=== PATIENT | female | born 1945 ===

== ENCOUNTER → 2019-06-19 | Outpatient (CLI) | payer MEDICARE ==
--- NOTE | 2019-06-19 16:49 | RAD ---
Chest CT without contrast Clinical indications: Lung nodule. Follow-up study. COMPARISON: July 15, 2017. TECHNIQUE: Noncontrast helical CT scanning of the chest was performed. Without IV contrast, the sensitivity to detect organ pathology is decreased. PQRS compliance Statement One or more of the following individualized dose reduction techniques were utilized for this study: 1. Automated exposure control 2. Adjustment of the mA and/or kV according to patient size 3. Use of iterative reconstruction technique FINDINGS: No enlarged thoracic lymphadenopathy is evident. Calcified lymph nodes are seen within the mediastinum and right hilum due to old atheromatous disease. No focal aneurysmal dilatation of the thoracic aorta is seen. The heart size is normal and no pericardial effusion is seen. Biapical scarring is seen which is unchanged. There is a nodular scar within the posterior aspect of the right upper lobe seen on series 8 and image 112 which measures 6 mm. This nodular component was not seen previously in the region of linear scar. Therefore, this is a new finding. There is a lung nodule within the lateral aspect of the right lower lobe seen on image 220. It measured 3 mm and is stable. Subpleural nodule within the posterior left lower lobe seen on image 205 is subcentimeter in size and is stable. On image 65, there is a 5 mm lung nodule within the anterior medial aspect of the right upper lobe. This is stable. No lung mass or lung consolidation is evident. No pneumothorax or pleural effusion is seen. The proximal bronchial tree is patent. No lytic process is evident. No adrenal mass is evident. IMPRESSION: New lung nodule within the right upper lobe which may represent a nodular scar. Recommend continued chest CT follow-up in 6-12 months as per Fleischner guidelines. Electronically signed by: Jeff Beard MD (06/19/2019 4:47 PM) [place] [id number]
== END | disposition home or self-care (01) ==
LOC: CT 08:47
PROVIDERS: ATTEND Internal Medicine Pulmonary Disease
DX: R91.8 Other nonspecific abnormal finding of lung field (principal)
CPT/HCPCS: 71250

== ENCOUNTER 2020-03-09 13:42 | Inpatient (IN) | payer MEDICARE ==
[~2020-03-09] VITALS: Ht 167.6 cm; Wt 60.9 kg
[~2020-03-09 13:42] MED LIST: ALBUTEROL SULFATE 2.5 MG/3 ML NEBU. NEB PRN
[2020-03-09] MEDS ORDERED: ONDANSETRON PF 4 MG/2 ML VIAL. IVP PRN (15:00)
[2020-03-09] MEDS: MORPHINE SULFATE 4 MG/ML VIAL. IV PRN ×2 (15:30→20:05)
[2020-03-09] MEDS: IV NORMAL SALINE 1000ML BAG 1,000 ML IV SCH ×2 (15:31→20:28)
[2020-03-09 16:45] VITALS: BP 136/60
[2020-03-09 19:00] VITALS: BP 157/75
[2020-03-09] MEDS ORDERED: LISI-334 PO (19:43)
[2020-03-09] MEDS ORDERED: MOME13HF IH (19:43)
[2020-03-09] MEDS ORDERED: LATA2.5D3 OS (19:43)
[2020-03-09] MEDS ORDERED: [UNRECOGNIZED DRUG - REMARK] OS (19:43)
[2020-03-09] MEDS ORDERED: DICL100G54 TP (19:43)
[2020-03-09] MEDS ORDERED: CELE100C PO (19:43)
[2020-03-09] MEDS ORDERED: MULT-460 PO (19:47)
[2020-03-09] MEDS ORDERED: CALC-31 PO (19:47)
[2020-03-09] MEDS ORDERED: ASPI-886 PO (19:47)
[2020-03-09] MEDS ORDERED: ACET325T9 PO (19:47)
[2020-03-09] MEDS ORDERED: POLY15DR27 EACHEYE (19:47)
[2020-03-09] MEDS ORDERED: POLYVINYL ALCOHOL 1.4% OPHTH SOLUTION 15ML BOTTLE. OS PRN (20:00)
[2020-03-09] MEDS ORDERED: ACETAMINOPHEN 325 MG TABLET. PO PRN ×2 (20:00)
[2020-03-09] MEDS ORDERED: BRIN10DR OS (20:02)
[2020-03-09] MEDS: DICLOFENAC SODIUM 1% TOPICAL GEL 100GM TUBE. TP SCH (20:46)
[2020-03-09] MEDS: BRIMONIDINE 0.2% OPHTH SOLUTION 5ML BOTTLE. OS SCH (20:46)
[2020-03-09] MEDS ORDERED: LATANOPROST 0.005% OPHTH SOLUTION 2.5ML BOTTLE. OS SCH (21:00)
[2020-03-09 23:00] VITALS: BP 100/47
[2020-03-10] VITALS (8 sets, daily range): BP systolic 112–160; BP diastolic 50–77
[2020-03-10 04:54] LABS: BASO % 0 % (0-3); EOS % 1 % (0-3); HEMATOCRIT 32.5 % (36.0-47.0); HEMOGLOBIN 11.3 g/dL (12.0-15.5); LYMPH # 0.9 x10^3/uL (1.0-4.8); LYMPH % 12 % (24-48); MEAN CORPUSCULAR HEMOGLOBIN 33 pg (25-35); MEAN CORPUSCULAR HGB CONC 35 g/dL (31-37); MEAN CORPUSCULAR VOLUME 95 fL (79-100); MONO # 0.7 x10^3/uL (0.0-1.1); MONO % 9 % (0-9); NEUT % 78 % (31-73); PLATELET COUNT 238 x10^3/uL (140-400); RED BLOOD COUNT 3.43 x10^6/uL (3.50-5.40); RED CELL DISTRIBUTION WIDTH 12.9 % (11.5-14.5); WHITE BLOOD COUNT 7.7 x10^3/uL (4.0-11.0)
[2020-03-10 05:11] LABS: ALBUMIN 3.1 g/dL (3.4-5.0); ALBUMIN/GLOBULIN RATIO 1.2 (1.0-1.7); CALCIUM 7.7 mg/dL (8.5-10.1); CREATININE 0.7 mg/dL (0.6-1.0); POTASSIUM 4.1 mmol/L (3.5-5.1); TOTAL BILIRUBIN 0.5 mg/dL (0.2-1.0); TOTAL PROTEIN 5.7 g/dL (6.4-8.2)
[2020-03-10] MEDS: MORPHINE SULFATE 4 MG/ML VIAL. IV PRN ×2 (05:43→10:10)
[2020-03-10] MEDS: IV NORMAL SALINE 1000ML BAG 1,000 ML IV SCH (06:08)
[2020-03-10] MEDS: BRIMONIDINE 0.2% OPHTH SOLUTION 5ML BOTTLE. OS SCH ×2 (08:00→20:51)
[2020-03-10] MEDS ORDERED: BUDESONIDE 0.5 MG/2 ML NEBU. NEB SCH (08:00)
[2020-03-10] MEDS: CALCIUM CARB/VIT D3 500/200 TABLET. PO SCH (08:00)
[2020-03-10] MEDS ORDERED: ALBUTEROL SULFATE 2.5 MG/3 ML NEBU. NEB SCH (08:00)
[2020-03-10] MEDS ORDERED: IV RINGERS,LACTATED 1000ML 1,000 ML IV SCH (08:01)
[2020-03-10] MEDS: DICLOFENAC SODIUM 1% TOPICAL GEL 100GM TUBE. TP SCH ×3 (08:01→20:52)
[2020-03-10] MEDS: MULTIVITAMIN with MINERAL TABLET. PO SCH (08:01)
[2020-03-10] MEDS ORDERED: PROCHLORPERAZINE 10 MG/2 ML VIAL. IV PRN (08:15)
[2020-03-10] MEDS ORDERED: MORPHINE SULFATE 2 MG/ML VIAL. IV PRN (08:15)
[2020-03-10] MEDS ORDERED: HYDROmorphone 2 MG/ML VIAL IV PRN (08:15)
[2020-03-10] MEDS ORDERED: fentaNYL PF VIAL 100 MCG/2 ML VIAL IV PRN (08:15)
[2020-03-10] MEDS ORDERED: LIDOCAINE 1% PF 2 ML VIAL. ID PRN (08:15)
[2020-03-10] MEDS ORDERED: ROCURONIUM 50 MG/5 ML VIAL. ONE (08:19)
[2020-03-10] MEDS ORDERED: LIDOCAINE 2% PF 5 ML VIAL. ONE (08:19)
[2020-03-10] MEDS ORDERED: PROPOFOL 10 MG/ML (20ML) VIAL. IV ONE (08:19)
[2020-03-10] MEDS ORDERED: CELECOXIB 100 MG CAPSULE. PO SCH (09:00)
[2020-03-10] MEDS ORDERED: LISINOPRIL 20 MG TABLET PO SCH (09:00)
--- NOTE | 2020-03-10 09:06 | NUR ---
SW following. Discussed with RN, pt from home with . Pt having surgery today - PT/OT to work with pt after surgery. SW will continue to follow.
--- NOTE | 2020-03-10 09:27 | PN ---
DATE: 03/10/2020 SUBJECTIVE: The patient is a 74-year-old female patient who was seen yesterday at [facility], was diagnosed with right intertrochanteric fracture of the right hip, was transferred to [facility]. We did consult Dr. Grant for definitive surgical treatment. When I saw her this morning, she looked well and was clearly in no apparent respiratory distress, questioned her about pain in her right hip, denied any other complaint. PHYSICAL EXAMINATION: GENERAL: On examining her, she looked pale, somewhat cachectic, but no jaundice, cyanosis or thyromegaly. No jugular venous distention. No limb edema. VITAL SIGNS: Her heart rate was 75, blood pressure was 142/59, temperature was 98.5, respiratory rate was 18, and oxygen saturation was 98%. The rest of clinical examination is stable. Her intake and output were incompletely recorded. LABORATORY DATA: Her lab work this morning showed a white cell count of 7700, hemoglobin 11, hematocrit 33, MCV 95, and platelet count 238,000. Her chemistry showed her serum sodium slightly up at 133, potassium 4.1, chloride 99, bicarbonate 26, anion gap of 8, BUN 11, creatinine 0.7, estimated GFR was 82 mL per minute. Her glucose 110, calcium was 7.7. Total bilirubin, AST, ALT, and alkaline phosphatase were normal. Total protein 5.7, albumin 3.1. Her prothrombin time and INR were within normal range. ASSESSMENT AND PLAN: In summary, this is a 74-year-old female patient who fell sustaining right intertrochanteric hip fracture. She was kept n.p.o. from midnight last night and continued IV fluid, IV pain medication, antiemetic and we did consult the orthopedic surgeon. She has also hypertension, was started recently on lisinopril. Whether this has contributed to her fall, I am not really sure and glaucoma, for which she is on eyedrops. She has a history of one episode of seizures in 2012. It never appeared back again. She has probably emphysema as well as pulmonary fibrosis and pulmonary nodules followed by Dr. Cook. I would consult Dr. Cook for preoperative evaluation and for postoperative followup. ROSENDO HALL MD DR: MAY/koffi JOB#: [id number] / [id number]
--- NOTE | 2020-03-10 09:35 | HP ---
ADMIT DATE: 03/09/2020 HISTORY OF PRESENT ILLNESS: The patient is a 74-year-old female patient who presented to the Emergency Room of [facility] after a fall at home. She states she was standing in her kitchen. She began getting dizzy something she described as lightheadedness and fell to the floor. She did not hit her head and is uncertain if she lost consciousness. She came complaining of severe right hip pain and thigh area. She is holding her head in a position of comfort with the flexion of her knees flexed as well. She denies any back pain. Denied any neck pain, chest pain, palpitation prior to the incident. Denied any nausea, vomiting, numbness or weakness. When she attempts to move her right leg, her pain gets worsened. She is on a baby aspirin. Otherwise, she is not on any anticoagulant. She was diagnosed with hypertension about more than 2 weeks ago and was started on lisinopril for the first time. She follows with Dr. Cook for what seems to be a nodule. However, she did not describe any diagnosis. She has never been diagnosed with COPD or emphysema. She was evaluated there and has had x-ray of the right hip and pelvis, which showed that there is an intertrochanteric fracture of the right hip. The remaining visualized osseous structures appear normal. Her right femur also showed no evidence of fracture. Her chest x-ray showed the cardiomediastinal silhouette is normal. The pulmonary vasculature is normal. The lungs are hyperinflated. Reticular opacities in the lungs are likely chronic pulmonary fibrosis. Her lab work was unremarkable apart from hyponatremia and the patient was transferred to [facility], kept n.p.o., started on IV fluid and pain medication and we consulted Dr. Grant for further evaluation and definitive surgical treatment. PAST MEDICAL HISTORY: Significant for hypertension, glaucoma, probably emphysema/pulmonary fibrosis as well as pulmonary nodules for which she is followed by Dr. Cook. She has also history of seizures. PAST SURGICAL HISTORY: Significant for cataract extraction, back surgery, right foot surgery and colonoscopy. ALLERGIES: She has no known drug allergies. INTOLERANT TO CODEINE. MEDICATIONS: She is currently on following medications: She is on calcium with vitamin D 1 tablet once a day, multivitamin 1 tablet once a day, lisinopril 20 mg once a day, Celebrex 100 mg once a day, brimonidine tartrate 1 drop to both eyes twice a day, latanoprost 1 drop to both eyes at bedtime. She is also on artificial tears 1 drop to both eyes 4 times a day and albuterol sulfate 2.5 mg by nebulizer 4 times a day. FAMILY HISTORY: She has 1 older sister who is healthy. One brother in his 60s because of myocardial infarction. One brother is still alive at age of 60 and generally healthy. Her father at age of 86 because of complication of Alzheimer disease. Mother in her 80s because of myocardial infarction. SOCIAL HISTORY: She is , has 2 daughters. She is an ex-smoker, quit in the year 1999. She used to smoke 1 pack a day since she was a freshman in high school. She drinks alcohol occasionally. 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 REVIEW OF SYSTEMS: The patient denied any blurring of vision, cataracts. She has had bilateral cataract extraction and she has also glaucoma, but denied any macular degeneration. Denied any earache, tinnitus or sensorineural deafness. Denied any nosebleeds, stuffy nose or postnasal drip. Denied any sore throat, sore tongue, toothache, hoarseness of voice or difficulty swallowing. Denied any nausea, vomiting, diarrhea or constipation. Denied any hematemesis, melena or hematochezia. Denied any dysuria, frequency or hematuria. Denied any chest pain, shortness of breath, orthopnea or paroxysmal nocturnal dyspnea. Denied any cough, phlegm or hemoptysis. Denied any previous episodes of dizziness or lightheadedness. She has never had any heart problems and never seen any green hide inspector for. PHYSICAL EXAMINATION: GENERAL: On arrival to the Emergency Room, she looked well, somewhat cachectic, but no jaundice, cyanosis or thyromegaly. No jugular venous distention. No lower limb edema. VITAL SIGNS: Her heart rate was 77, blood pressure 100/47, temperature 98.4, respiratory rate was 18 and oxygen saturation was 96% on room air. HEAD, EYES, EARS, NOSE AND THROAT: Showed normocephalic, atraumatic. NECK: Supple. HEART: Showed normal first and second heart sounds. No gallop or murmur. CHEST: Clear to auscultation. No crepitation or rhonchi. ABDOMEN: Scaphoid, soft, nontender. NEUROLOGIC: She is awake, alert, responding appropriately. All cranial nerves intact. EXTREMITIES: She moves extremities without difficulty. She used to ambulate without any assistance or assistive devices. She is obviously now in severe pain because of the right intertrochanteric fracture. LABORATORY DATA: Her lab work showed a white cell count 7700, hemoglobin 11, hematocrit 33, MCV 95, and platelet count 236,000. Her chemistry showed a serum sodium 133, potassium 4.1, chloride 99, bicarbonate 26, anion gap of 8, BUN 11, creatinine 0.7, estimated GFR was 83 mL per minute. Her glucose was 110, calcium was 7.7. Total bilirubin, AST, ALT, alkaline phosphatase were normal. Total protein was 5.7, albumin was 3.1. Her prothrombin time and INR are normal. Her first set of cardiac enzymes showed troponin to be less than 0.17. Her COVID-19 by PCR was negative. Her x-ray of the right hip and pelvis, right femur and chest x-ray showed that the cardiomediastinal silhouette is normal. The pulmonary vasculature is normal. The lungs are hyperinflated with reticular opacities of the lungs that are likely chronic pulmonary fibrosis. Her x-ray of the pelvis and right hip joint showed that there is obscuration of the bony details of the sacrum due to overlying bowel gas. The visualized osseous structures showed marked degenerative changes in the hips bilaterally with loss of joint spaces. There is intratrochanteric fracture of the right hip with minimal distraction, but no displacement and x-ray of the right femur showed no abnormality. ASSESSMENT AND PLAN: The patient was transferred to [facility], was started on IV fluid, IV pain medication as well as antiemetic. Start on SCDs and consulted Dr. Grant and continued all her other medications. Obviously, she was started recently on lisinopril and whether she has some form of postural drop or arrhythmias difficult to know. I will consult Dr. Cook as he has been following her on this pulmonary nodule and probably emphysema and pulmonary fibrosis. ROSENDO HALL MD DR: MAY/koffi JOB#: [id number] / [id number]
[2020-03-10] MEDS ORDERED: ceFAZolin SODIUM IV Push 1 GM VIAL. IVP ONE (10:44)
[2020-03-10] MEDS ORDERED: MORPHINE SULFATE 5 MG, KETOROLAC 30MG VIAL 30 MG, ROPIVacaine 0.5% PF 60 ML, EPINEPHrin... INT ART ONE (11:00)
--- NOTE | 2020-03-10 11:05 | NUR ---
Pt transferred to PACU by bed. Spouse accompanied.
[2020-03-10] MEDS ORDERED: DESFLURANE 61 TO 120 MINUTES IH ONE (12:07)
[2020-03-10] MEDS ORDERED: DEXAMETHASONE SOD PHOS 4 MG/ML VIAL ONE (12:07)
[2020-03-10] MEDS ORDERED: PHENYLEPHRINE in 0.9% NACL PF 1 MG/10 ML SYRINGE. IV ONE (12:25)
[2020-03-10] MEDS ORDERED: ePHEDrine PF IN SALINE 50 MG/10 ML SYRINGE. IV ONE (12:25)
[2020-03-10] MEDS ORDERED: TRANEXAMIC ACID 1,000 MG in IV NS 50ML -- 1ST BAG INJ ONE (12:30)
[2020-03-10] MEDS ORDERED: TRANEXAMIC ACID 1,000 MG in IV NS 50ML -- 2ND BAG INJ ONE (12:30)
[2020-03-10] MEDS ORDERED: fentaNYL PF VIAL 100 MCG/2 ML VIAL ONE (12:48)
[2020-03-10] MEDS ORDERED: NEOSTIGMINE METHYLSULFATE 5 MG/5 ML SYRINGE. ONE (13:59)
[2020-03-10] MEDS ORDERED: ONDANSETRON PF 4 MG/2 ML VIAL. ONE (14:00)
[2020-03-10] MEDS: fentaNYL PF VIAL 100 MCG/2 ML VIAL IV PRN ×2 (14:33→14:40)
--- NOTE | 2020-03-10 15:35 | NUR ---
Arrived to unit by bed from PACU. Asleep. VS stable. O2 at 3l per n/c. Dressing on right hit d/i with VALORIE. Pedal pulses + bilaterally, warm touch and pink. TEDs and SCD on bilaterally. Side rails up x's 2 with call light in reach. Family at bedside. Cont. monitor.
--- NOTE | 2020-03-10 17:29 | PDOC ---
PULMONARY PROGRESS NOTES Vitals Vital Signs Date Time Temp Pulse Resp B/P (MAP) Pulse Ox O2 Delivery O2 Flow Rate FiO2 03/10/20 15:05 82 18 128/41 98 Nasal Cannula 2 03/10/20 14:19 98.9 98.9 Labs Laboratory Tests Test 03/10/20 04:15 White Blood Count 7.7 x10^3/uL (4.0-11.0) Red Blood Count 3.43 x10^6/uL (3.50-5.40) Hemoglobin 11.3 g/dL (12.0-15.5) Hematocrit 32.5 % (36.0-47.0) Mean Corpuscular Volume 95 fL (79-100) Mean Corpuscular Hemoglobin 33 pg (25-35) Mean Corpuscular Hemoglobin Concent 35 g/dL (31-37) Red Cell Distribution Width 12.9 % (11.5-14.5) Platelet Count 238 x10^3/uL (140-400) Neutrophils (%) (Auto) 78 % (31-73) Lymphocytes (%) (Auto) 12 % (24-48) Monocytes (%) (Auto) 9 % (0-9) Eosinophils (%) (Auto) 1 % (0-3) Basophils (%) (Auto) 0 % (0-3) Neutrophils # (Auto) 6.0 x10^3/uL (1.8-7.7) Lymphocytes # (Auto) 0.9 x10^3/uL (1.0-4.8) Monocytes # (Auto) 0.7 x10^3/uL (0.0-1.1) Eosinophils # (Auto) 0.0 x10^3/uL (0.0-0.7) Basophils # (Auto) 0.0 x10^3/uL (0.0-0.2) Prothrombin Time 13.0 SEC (11.7-14.0) Prothromb Time International Ratio 1.0 (0.8-1.1) Sodium Level 133 mmol/L (136-145) Potassium Level 4.1 mmol/L (3.5-5.1) Chloride Level 99 mmol/L (98-107) Carbon Dioxide Level 26 mmol/L (21-32) Anion Gap 8 (6-14) Blood Urea Nitrogen 11 mg/dL (7-20) Creatinine 0.7 mg/dL (0.6-1.0) Estimated GFR (Cockcroft-Gault) 82.0 BUN/Creatinine Ratio 16 (6-20) Glucose Level 110 mg/dL (70-99) Calcium Level 7.7 mg/dL (8.5-10.1) Total Bilirubin 0.5 mg/dL (0.2-1.0) Aspartate Amino Transf (AST/SGOT) 16 U/L (15-37) Alanine Aminotransferase (ALT/SGPT) 19 U/L (14-59) Alkaline Phosphatase 42 U/L (46-116) Total Protein 5.7 g/dL (6.4-8.2) Albumin 3.1 g/dL (3.4-5.0) Albumin/Globulin Ratio 1.2 (1.0-1.7) Laboratory Tests Test 03/10/20 04:15 White Blood Count 7.7 x10^3/uL (4.0-11.0) Red Blood Count 3.43 x10^6/uL (3.50-5.40) Hemoglobin 11.3 g/dL (12.0-15.5) Hematocrit 32.5 % (36.0-47.0) Mean Corpuscular Volume 95 fL (79-100) Mean Corpuscular Hemoglobin 33 pg (25-35) Mean Corpuscular Hemoglobin Concent 35 g/dL (31-37) Red Cell Distribution Width 12.9 % (11.5-14.5) Platelet Count 238 x10^3/uL (140-400) Neutrophils (%) (Auto) 78 % (31-73) Lymphocytes (%) (Auto) 12 % (24-48) Monocytes (%) (Auto) 9 % (0-9) Eosinophils (%) (Auto) 1 % (0-3) Basophils (%) (Auto) 0 % (0-3) Neutrophils # (Auto) 6.0 x10^3/uL (1.8-7.7) Lymphocytes # (Auto) 0.9 x10^3/uL (1.0-4.8) Monocytes # (Auto) 0.7 x10^3/uL (0.0-1.1) Eosinophils # (Auto) 0.0 x10^3/uL (0.0-0.7) Basophils # (Auto) 0.0 x10^3/uL (0.0-0.2) Prothrombin Time 13.0 SEC (11.7-14.0) Prothromb Time International Ratio 1.0 (0.8-1.1) Sodium Level 133 mmol/L (136-145) Potassium Level 4.1 mmol/L (3.5-5.1) Chloride Level 99 mmol/L (98-107) Carbon Dioxide Level 26 mmol/L (21-32) Anion Gap 8 (6-14) Blood Urea Nitrogen 11 mg/dL (7-20) Creatinine 0.7 mg/dL (0.6-1.0) Estimated GFR (Cockcroft-Gault) 82.0 BUN/Creatinine Ratio 16 (6-20) Glucose Level 110 mg/dL (70-99) Calcium Level 7.7 mg/dL (8.5-10.1) Total Bilirubin 0.5 mg/dL (0.2-1.0) Aspartate Amino Transf (AST/SGOT) 16 U/L (15-37) Alanine Aminotransferase (ALT/SGPT) 19 U/L (14-59) Alkaline Phosphatase 42 U/L (46-116) Total Protein 5.7 g/dL (6.4-8.2) Albumin 3.1 g/dL (3.4-5.0) Albumin/Globulin Ratio 1.2 (1.0-1.7) Medications Active Scripts Medications Dose Route/Sig Max Daily Dose Days Date Category Dose Instructions Azopt (Brinzolamide) 10 Ml Drops.susp 1 Drop OS BID 03/09/20 Reported Artificial Tears (Polyvinyl Alcohol) 15 Ml Drops 1 Drop EACHEYE QID PRN 20 03/09/20 Reported Tylenol (Acetaminophen) 325 Mg Tablet 1-2 Tab PO QID 03/09/20 Reported Multiple Vitamin (Multivitamin With Minerals) 1 Each Tablet 1 Each PO DAILY 03/09/20 Reported Aspirin Ec (Aspirin) 81 Mg Tablet.dr 1 Tab PO DAILY 03/09/20 Reported Calcium 500 + D Tablet (Calcium Carbonate/Vitamin D3) 1 Each Tablet 1 Tab PO DAILY 30 03/09/20 Reported Voltaren (Diclofenac Sodium) 100 Gm Gel..gram. 1 Gm TP TID 30 03/09/20 Reported apply to affected area(s) Dulera 200 Mcg/5 Mcg Inhaler (Mometasone/Formoterol) 13 Gm Hfa.aer.ad 2 Puff IH BID 03/09/20 Reported Latanoprost 2.5 Ml Drops 1 Drop OS QHS 03/09/20 Reported Celebrex (Celecoxib) 100 Mg Capsule 100 Mg PO DAILY 30 03/09/20 Reported Lisinopril 20 Mg Tablet 1 Tab PO DAILY 03/09/20 Reported Impression . Full note dictated, concur with current medical management, proceed with surgery YOLANDA HANSEN MD Mar 10, 2020 17:29
[2020-03-10] MEDS ORDERED: fentaNYL PF VIAL 100 MCG/2 ML VIAL IVP PRN (17:30)
[2020-03-10] MEDS ORDERED: diphenhydrAMINE 50 MG/ML VIAL IVP PRN (17:30)
[2020-03-10] MEDS ORDERED: MORPHINE SULFATE 2 MG/ML VIAL. IVP PRN (17:30)
[2020-03-10] MEDS ORDERED: DEXTROSE 50% 25 GM / 50ML DISP.SYRIN. IV PRN (17:30)
[2020-03-10] MEDS ORDERED: IV NORMAL SALINE 1000ML BAG 1,000 ML IV SCH (18:00)
--- NOTE | 2020-03-10 18:30 | NUR ---
Pt awaken and eating dinner tray. Tolerating it well. No c/o pain at this time. Cont. monitor.
[2020-03-10] MEDS: ceFAZolin SODIUM IV Push 1 GM VIAL. IVP SCH (19:49)
[2020-03-10] MEDS: oxyCODONE IR 5 MG TABLET PO PRN (20:07)
[2020-03-10] MEDS ORDERED: WARFARIN 7.5 MG TABLET. PO ONE (20:30)
--- NOTE | 2020-03-10 20:43 | CONS ---
DATE OF CONSULTATION: 03/10/2020 ATTENDING PHYSICIAN: Dr. Clarke. CONSULTING PHYSICIAN: Yolanda Hansen MD REASON FOR CONSULTATION: The patient seen in pulmonary consultation at the request of Dr. Clarke for preoperative evaluation. The patient suffered a hip fracture requiring surgical intervention. HISTORY OF PRESENT ILLNESS: The patient is a 74-year-old that is well known to me from previous hospital visit. She was seen back in January. She has an FEV1 of 1.66 liters, so she does not wear oxygen at home. She presented with a fall resulting in a hip fracture. I was asked to see her in consultation for preop. The patient denies any recent increasing shortness of breath. No cough. No fever, chills or night sweats. She has not been around anybody that is tested positive for SARS-CoV-2. PAST MEDICAL HISTORY: Hypertension, glaucoma, COPD, previous pulmonary nodules. PAST SURGICAL HISTORY: Status post cataract extraction, back surgery, right hip. ALLERGIES: No known drug allergies. MEDICATIONS: List was reviewed. FAMILY HISTORY: She has an older sibling who is healthy. Brother at the age of 60 from myocardial infarction. SOCIAL HISTORY: She is . She has 2 daughters. She is a previous smoker. REVIEW OF SYSTEMS: As indicated above, otherwise, a 10-point system was reviewed and negative. PHYSICAL EXAMINATION: VITAL SIGNS: Stable. O2 saturation greater than 92%. HEENT: Eyes, the sclerae were nonicteric. NECK: Jugular venous distention was not elevated. No lymphadenopathy. CHEST: Full expansion. LUNGS: Slight crackles. No wheezes. CARDIOVASCULAR: Regular rate and rhythm with S1 and S2. No S3. ABDOMEN: Soft, nontender, nondistended. EXTREMITIES: No clubbing, cyanosis or edema. IMAGING: Chest x-ray was reviewed, no acute infiltrates. LABORATORY DATA: Reviewed. White count was normal. Hemoglobin and hematocrit were noted. IMPRESSION: 1. Chronic obstructive pulmonary disease. 2. Fall resulting in right hip fracture. 3. History of tobacco dependence, in admission. 4. Hypertension. 5. Seizure. PLAN: 1. Respiratory status compensated, proceed with surgery. 2. Aggressive postoperative pulmonary hygiene with incentive spirometry, DVT prophylaxis, and oxygen supplementation. Dr. Clarke, I do appreciate the privilege in sharing in the patient's care. YOLANDA HANSEN MD DR: Thiago JOB#: [id number] / [id number]
[2020-03-10] MEDS: BRINZOLAMIDE 1% OS SCH (20:52)
[2020-03-10] MEDS: LATANOPROST OS SCH (20:52)
--- NOTE | 2020-03-10 21:32 | RAD ---
HIP RIGHT 2V WITH PELVIS History: Postop right hip replacement Comparison: March 09, 2020 Findings: AP view the pelvis and 2 views of the right hip are submitted. There is now a right total hip arthroplasty. There is now plate and cerclage wire of the proximal right femur. There are multiple skin clips present. There is again advanced osteoarthritic change of left hip. Impression: 1. There is now right hip arthroplasty and proximal right femur hardware. 3. There is advanced osteoarthritic change of the left hip. Electronically signed by: Luis Daniel London MD (03/10/2020 9:29 PM) [facility]
[2020-03-10] MEDS: DULERA INHALER INH SCH (22:14)
--- NOTE | 2020-03-10 22:31 | PDOC4 ---
Operative Note Operative Note Date of surgery: 03/10/2020 Preoperative diagnosis: Right intertrochanteric hip fracture with severe degenerative joint disease Postoperative diagnosis: Same Operative procedure: Operative reduction internal fixation of right intertrochanteric hip fracture and total hip arthroplasty Surgeon: Juanita Library Circulation Assistant: Ketan garcia Anesthesia: General Estimated blood loss: 100 cc Complications: None Operative indications: Please see my dictated orthopedic consultation for detailed operative indications and note that I reviewed specifically with her the expected on acceptability of fixation of her fracture because of her severe degenerative change would likely result in nonhealing because of her pre- existing severe stiffness and inability of the hip to articulate. I did indicate that this is a more complicated procedure that involves the hip replacement and additional fixation of the fracture with cable and claw fixation. I went over the possibility of nonhealing instability infection premature wear or loosening medical or other anesthetic complications among ot hers and finally did discuss with her all options considered that I feel that the hip arthroplasty along with fixation of the fracture is her best option and she agrees to proceed with surgical evaluation and treatment having given informed consent. Operative text: Patient was identified procedure verified patient placed in the supine position on the operating table. After adequate amounts of general anesthesia were administered she was placed in the decubitus position left side up using the Stulberg hip positioner and the left hip was prepped and draped in standard sterile fashion. After timeout was performed patient procedure i dentified and verified curvilinear incision was made over the greater trochanter dissection carried out down to the iliotibial band and gluteal fascia which was split in line with their fibers and a Charnley retractor was placed. She was noted to have an intertrochanteric fracture with gross instability of the greater trochanter and next the external rotators were divided from their insertion and hip capsule was split in a T fashion. To avoid more comminution than necessary the corkscrew attachment was placed on the drill drilled across the femoral neck at the base of the femoral head and it was gently levered out of the hip socket along with gentle rotation of the lower extremity to avoid further comminution or displacement. Using the cutting guide a calcar cut was made to preserve some of the comminuted calcar area bone. Femoral head was removed and sized and the contents of the fovea removed and there was no labrum remaining. Successive size reaming was carried out up to a size 53 mm with a stick-type coated 54 mm cluster hole hemispherical cup which was placed in proper version and inclination and impacted with excellent scratch fit. A single 40 mm screw was placed superiorly with excellent bite and a 36 mm neutral polyethylene was impacted into place. The femur was then reamed and broached selecting a size 13 standard offset broach initially with a +0 trial which readily and easily reduced and provided good stability. The calcar was further trimmed with rongeurs to line up with the broach corresponding to the ingrowth portion of the Synergy femoral stem. Thorough irrigation was then carried out normal saline solution and I elected to first impact the size 13 standard offset Synergy femoral stem which seated well in proper version. After additional trialing I elected to place a +4 cobalt-chromium 36 mm head which was tapped to engage the Dalton taper and reduced with excellent reproduction of the leg length and offset with excellent stability and achieving full range of motion. Next the small 115 mm trochanteric claw was selected and tapped into place to reduce and hold the greater trochanteric fragment. First cable fixation was obtained distally and additional fixation around the area of the lower portion of the calcar below the lesser trochanter. An additional distal cable was tightened and placed for additional distal fixation. Additionally fixation of the greater trochanter was supplemented by a total of two #5 Ethibond sutures and resulted in anatomic alignment. Additional Ethibond was placed around a small portion of the calcar to reduce the comminution as anatomically as possible. There irrigation again carried out with normal saline solution. Intra-articular mixture was injected throughout the joint capsule and surrounding areas of the fascia intra-articularly. Joint capsule was repaired with #5 Ethibond sutures. External rotators were reattached by placement through the lesser trochanter of Ethibond sutures tied around the claw anteriorly. Closure of the iliotibial band and fascia was carried out with interrupted #5 Ethibond suture and reinforced by #1 PDS strata fix suture. Subcutaneous closure with layered b uried Vicryl suture skin closure with subcuticular 3-0 strata fix Monocryl. A anisha dressing with Acticoat was placed patient was returned to recovery room in stable condition having tolerated procedure well. Ketan garcia was present for the procedure and assisted in the patient positioning prepping draping retraction and closure YEE BENTLEY MD Mar 10, 2020 22:31
[2020-03-11] MEDS: ceFAZolin SODIUM IV Push 1 GM VIAL. IVP SCH ×2 (00:28→06:21)
[2020-03-11 03:00] VITALS: BP 111/53
--- NOTE | 2020-03-11 03:19 | CONS ---
DATE OF CONSULTATION: 03/10/2020 ORTHOPEDIC CONSULTATION REQUESTING PHYSICIAN: Dave Clarke MD REASON FOR CONSULTATION: Left hip fracture. HISTORY OF PRESENT ILLNESS: The patient is a 74-year-old female who got dizzy and lightheaded while she was standing in her kitchen, fell to the floor and had immediate onset of right hip and thigh pain. She then presented to [facility] Emergency Department and was transferred to [facility] after being diagnosed with an intertrochanteric hip fracture. PAST MEDICAL HISTORY: Significant for hypertension and emphysema with pulmonary fibrosis and some pulmonary nodules as well as glaucoma and a history of seizures, now well controlled. PAST SURGICAL HISTORY: Significant for cataract surgery, back surgery, right foot surgery and colonoscopy. ALLERGIES: She has no known drug allergies, but indicates that CODEINE gives her nausea. MEDICATIONS: List is reviewed. FAMILY HISTORY: Heart attack in her brother, Alzheimer's in her father, and heart attack in her mother. SOCIAL HISTORY: She used to smoke, quit 20 years ago and has about a [id number] history prior to that. Occasional social alcohol consumption. Denies drug use. She is now retired and is and has 2 daughters and her is with her today. REVIEW OF SYSTEMS: She does indicate some preexisting dizziness and lightheadedness prior to the fall. She denies any loss of consciousness and did not hit her head. She denies any neck or back pain, chest pain, shortness of breath. No other joint instability or pain, but does have severe right hip pain with any range of motion or pressure and she does indicate some severe preexisting stiffness in the right hip where her motion is much decreased and it had been hurting at any extremes of range of motion or increasingly hurting walking prior to this. PHYSICAL EXAMINATION: GENERAL: This is a pleasant, cooperative 74-year-old female, alert and oriented, no acute distress. EXTREMITIES: Examination of her upper extremities, she has good shoulder, elbow, wrist motion and stability bilaterally. No tenderness on palpation. On examination of the lower extremities, she is very tender over the right hip on any palpation or movement. She does not really have any significant shortening, but does not want to move the hip and holds the knee in a position of slight flexion for comfort. Normal examination of the contralateral left hip, normal alignment and stability of bilateral knees and ankles with intact motor function, distal pulses, sensation in both upper and lower extremities throughout. IMAGING: X-rays show severe [id number] degenerative change in the right hip with an intertrochanteric right hip fracture. IMPRESSION: Right hip intertrochanteric hip fracture with severe degenerative disc disease of right hip. TREATMENT PLAN: I had gone over with her and her the combination of the problems that she has and the concern that I had of attempted fixation of her fracture would not result in satisfactory results as the stiffness in her hip may give her difficulties healing and at the best of circumstances, it would heal up, but we would likely have to proceed with a later hip replacement to help her function and in the worse scenario, it is very possible that she may not go on to heal the fracture because of the stiffness and have unacceptable results and therefore I would recommend a total hip arthroplasty with fixation of her fracture with a claw-type fixation of the involved trochanteric areas. This does complicate the procedure somewhat and there is a possibility of nonhealing of the fractures; however, I think overall this is her best alternative in terms of treatment and we did go over the risk of premature wear or loosening, instability, infection, nerve or blood vessel damage, nonhealing of the fractures, medical or other anesthetic complications among others including continued pain. All her questions were answered and she does wish to proceed with surgical evaluation and treatment, which will occur today following Dr. Clarke's evaluation and medical clearance. YEE BENTLEY MD DR: SOCORRO/koffi JOB#: [id number] / [id number]
[2020-03-11] MEDS ORDERED: MAGNESIUM HYDROXIDE 2,400 MG/30 ML ORAL.SUSP. PO PRN (06:00)
[2020-03-11 06:10] LABS: PROTHROMBIN TIME PATIENT 14.7 SEC (11.7-14.0)
[2020-03-11] MEDS: oxyCODONE IR 5 MG TABLET PO PRN ×5 (06:28→22:51)
[2020-03-11 07:00] VITALS: BP 124/50
[2020-03-11] MEDS: FERROUS SULFATE 325 MG TABLET. PO SCH ×2 (08:00→16:00)
--- NOTE | 2020-03-11 08:48 | PDOC ---
PULMONARY PROGRESS NOTES Subjective Patient not more short of air no increasing cough no chest pain no pressure Vitals Vital Signs Date Time Temp Pulse Resp B/P (MAP) Pulse Ox O2 Delivery O2 Flow Rate FiO2 03/11/20 07:28 Room Air 03/11/20 07:00 98.7 87 20 124/50 (74) 100 98.7 03/11/20 06:28 2.0 ROS: No Nausea, No Chest Pain, No Abdominal Pain, No Increase Cough General: Alert Lungs: Clear Cardiovascular: S1, S2 Abdomen: Soft Neuro Exam: Alert Extremities: No Edema Skin: Warm Labs Laboratory Tests Test 03/10/20 04:15 03/11/20 04:50 White Blood Count 7.7 x10^3/uL (4.0-11.0) Red Blood Count 3.43 x10^6/uL (3.50-5.40) Hemoglobin 11.3 g/dL (12.0-15.5) Hematocrit 32.5 % (36.0-47.0) Mean Corpuscular Volume 95 fL (79-100) Mean Corpuscular Hemoglobin 33 pg (25-35) Mean Corpuscular Hemoglobin Concent 35 g/dL (31-37) Red Cell Distribution Width 12.9 % (11.5-14.5) Platelet Count 238 x10^3/uL (140-400) Neutrophils (%) (Auto) 78 % (31-73) Lymphocytes (%) (Auto) 12 % (24-48) Monocytes (%) (Auto) 9 % (0-9) Eosinophils (%) (Auto) 1 % (0-3) Basophils (%) (Auto) 0 % (0-3) Neutrophils # (Auto) 6.0 x10^3/uL (1.8-7.7) Lymphocytes # (Auto) 0.9 x10^3/uL (1.0-4.8) Monocytes # (Auto) 0.7 x10^3/uL (0.0-1.1) Eosinophils # (Auto) 0.0 x10^3/uL (0.0-0.7) Basophils # (Auto) 0.0 x10^3/uL (0.0-0.2) Prothrombin Time 13.0 SEC (11.7-14.0) 14.7 SEC (11.7-14.0) Prothromb Time International Ratio 1.0 (0.8-1.1) 1.2 (0.8-1.1) Sodium Level 133 mmol/L (136-145) Potassium Level 4.1 mmol/L (3.5-5.1) Chloride Level 99 mmol/L (98-107) Carbon Dioxide Level 26 mmol/L (21-32) Anion Gap 8 (6-14) Blood Urea Nitrogen 11 mg/dL (7-20) Creatinine 0.7 mg/dL (0.6-1.0) Estimated GFR (Cockcroft-Gault) 82.0 BUN/Creatinine Ratio 16 (6-20) Glucose Level 110 mg/dL (70-99) Calcium Level 7.7 mg/dL (8.5-10.1) Total Bilirubin 0.5 mg/dL (0.2-1.0) Aspartate Amino Transf (AST/SGOT) 16 U/L (15-37) Alanine Aminotransferase (ALT/SGPT) 19 U/L (14-59) Alkaline Phosphatase 42 U/L (46-116) Total Protein 5.7 g/dL (6.4-8.2) Albumin 3.1 g/dL (3.4-5.0) Albumin/Globulin Ratio 1.2 (1.0-1.7) Laboratory Tests Test 03/11/20 04:50 Prothrombin Time 14.7 SEC (11.7-14.0) Prothromb Time International Ratio 1.2 (0.8-1.1) Medications Active Scripts Medications Dose Route/Sig Max Daily Dose Days Date Category Dose Instructions Azopt (Brinzolamide) 10 Ml Drops.susp 1 Drop OS BID 03/09/20 Reported Artificial Tears (Polyvinyl Alcohol) 15 Ml Drops 1 Drop EACHEYE QID PRN 20 03/09/20 Reported Tylenol (Acetaminophen) 325 Mg Tablet 1-2 Tab PO QID 03/09/20 Reported Multiple Vitamin (Multivitamin With Minerals) 1 Each Tablet 1 Each PO DAILY 03/09/20 Reported Aspirin Ec (Aspirin) 81 Mg Tablet.dr 1 Tab PO DAILY 03/09/20 Reported Calcium 500 + D Tablet (Calcium Carbonate/Vitamin D3) 1 Each Tablet 1 Tab PO DAILY 30 03/09/20 Reported Voltaren (Diclofenac Sodium) 100 Gm Gel..gram. 1 Gm TP TID 30 03/09/20 Reported apply to affected area(s) Dulera 200 Mcg/5 Mcg Inhaler (Mometasone/Formoterol) 13 Gm Hfa.aer.ad 2 Puff IH BID 03/09/20 Reported Latanoprost 2.5 Ml Drops 1 Drop OS QHS 03/09/20 Reported Celebrex (Celecoxib) 100 Mg Capsule 100 Mg PO DAILY 30 03/09/20 Reported Lisinopril 20 Mg Tablet 1 Tab PO DAILY 03/09/20 Reported Impression . IMPRESSION: 1. Chronic obstructive pulmonary disease. 2. Fall resulting in right hip fracture. 3. History of tobacco dependence, in admission. 4. Hypertension. 5. Seizure. Plan . Continue support Postop care Oxygen PRN DVT GI prophylax YOLANDA HANSEN MD Mar 11, 2020 08:48
[2020-03-11] MEDS: DULERA INHALER INH SCH ×2 (09:00→22:40)
[2020-03-11] MEDS: CELECOXIB 100 MG CAPSULE. PO SCH (09:00)
[2020-03-11] MEDS: LISINOPRIL 20 MG TABLET PO SCH (09:00)
[2020-03-11] MEDS: CALCIUM CARB/VIT D3 500/200 TABLET. PO SCH (09:00)
[2020-03-11] MEDS ORDERED: MULTIVITAMIN with MINERAL TABLET. PO SCH (09:00)
[2020-03-11] MEDS: BRINZOLAMIDE 1% OS SCH ×2 (09:00→22:39)
[2020-03-11] MEDS: DICLOFENAC SODIUM 1% TOPICAL GEL 100GM TUBE. TP SCH ×3 (09:00→21:00)
[2020-03-11] MEDS: MULTIVITAMIN with MINERAL TABLET. PO SCH (09:00)
[2020-03-11] MEDS: SENNOSIDES/DOCUSATE 8.6/50MG TABLET. PO SCH (09:00)
[2020-03-11] MEDS: BRIMONIDINE 0.2% OPHTH SOLUTION 5ML BOTTLE. OS SCH ×2 (09:00→22:38)
--- NOTE | 2020-03-11 10:54 | PN ---
DATE: 03/11/2020 SUBJECTIVE: The patient is resting, slightly propped up in bed, no apparent distress. She is awake, alert. She was admitted after she fell and sustained a right intertrochanteric fracture. She underwent operative reduction and internal fixation of right intertrochanteric hip fracture and total hip arthroplasty successfully. When I saw her this morning, she was awake, alert. Her pain fluctuates, but generally well controlled. She was seen by Dr. Cook, who obviously recommended aggressive pulmonary hygiene with incentive spirometry, DVT prophylaxis and oxygen supplementation. PHYSICAL EXAMINATION: GENERAL: When I saw her this morning, she looked well and was clearly in no apparent respiratory distress. No pallor, jaundice, cyanosis or thyromegaly. No jugular venous distention. No lower limb edema. VITAL SIGNS: Her heart rate was 87, blood pressure was 124/50, temperature 98.7, respiratory rate 20 and oxygen saturation was 100% on 2 liters of oxygen. HEAD, EYES, EARS, NOSE AND THROAT: Showed normocephalic, atraumatic. NECK: Supple. HEART: Showed normal first and second sounds. No gallop, rub or murmur. CHEST: Clear to auscultation. No crepitation or rhonchi. ABDOMEN: Distended, soft, nontender. No guarding or rigidity. No organomegaly. All hernial orifices intact. Bowel sounds normal. NEUROLOGICAL: She was awake, alert, responding appropriately. All cranial nerves are intact. She moves upper extremities without difficulty. She was not seen yet by the Physical Therapy. Her intake over the last 24 hours was 1000, output was 1350. LABORATORY DATA: Had no lab work done this morning; however, her prothrombin time was 14.7, INR 1.2. ASSESSMENT: Fall with resultant right intertrochanteric hip fracture, severe degenerative joint disease for which the patient underwent operative reduction and internal fixation of right intertrochanteric hip fracture and total hip arthroplasty successfully. Other medical problems include: 1. Hypertension. 2. Chronic obstructive pulmonary disease. 3. Glaucoma. 4. Pulmonary nodules, followed by Dr. Cook. 5. She has also history of seizures. PLAN: To continue with DVT prophylaxis in the form of Coumadin. Continue with pain management. Continue with physical and occupational therapy. ROSENDO HALL MD DR: MAY/koffi JOB#: [id number] / [id number]
[2020-03-11 11:00] VITALS: BP 124/56
--- NOTE | 2020-03-11 11:36 | NUR ---
SW following. Discussed with RN, pt from home with , regular diet. PT/OT to work with pt today. VIJAY will continue to follow for discharge planning. Addendum: 03/11/20 at 1525 by KELLIE LINARES PT/OT recommending acute rehab. VIJAY met with pt and pt's , pt does not want to go to acute rehab, she wants to go home with home health. Pt does not have a preference, but would like a company that takes both her Medicare and [employer] medicare supplement. Pt signed choice of vendor form. Pt does not have a walker at home, gave SW $20 for the [facility] provided walker. VIJAY gave the $20 to the RN. VIJAY will continue to follow.
--- NOTE | 2020-03-11 14:43 | NUR ---
Pharmacy Warfarin Dosing Note S:Pharmacy consulted to assist with anticoagulation therapy started 03/10/20 with target INR: 1.6 - 2.5 O:DANIEL GARCIA is a 74 year old F with Hip Fracture LABS: Last INR: 1.2 Last HGB: 11.3 Last HCT: Last PLT: Last dose of 7.5 mg given on 03/10/20 at 1700 Previous Regimen: Vitamin K given: N Drug Interaction Changes: Ongoing Drug Interactions: A:INR of 1.2 is below desired range. Target range for this patient is: 1.6 - 2.5 P: Warfarin dose: 5 mg Today at 1600 Bridge Therapy: None Next INR due IN AM Pharmacy anticoagulation service will continue to follow. CECI BURDICK RPH, 03/11/20 [id number] Pharmacy Vancomycin Dosing Note S:Consulted to monitor and dose vancomycin started . O:DANIEL GARCIA is a 74 year old F with . Height: 5 feet, 6 inches Weight: 60.9 kg Big Bar Body Weight: Adjusted Body Weight: Dosing Weight: Other Antibiotics: LABS: Last BUN: Last Creatinine: Creatinine Clearance: mL/min Last WBC: Last Procalcitonin: Tmax (past 24 hours): Microbiology: I/O: Drug Levels: Last level: on at Last dose given at Vancomycin Dosing: Loading Dose: x1 Dosing Weight: Target Trough: A: Based on: [] P: 1. [g RX.ACTION] Vancomycin IV 2. Follow up level on at 3. Pharmacy will continue to monitor, follow and adjust therapy as needed. CECI BURDICK RPH, 03/11/20 [id number]
[2020-03-11 15:00] VITALS: BP 133/50
[2020-03-11] MEDS ORDERED: WARFARIN 5 MG TABLET. PO ONE (16:00)
[2020-03-11] MEDS ORDERED: BISACODYL 10 MG SUPP.RECT. PR PRN (16:00)
[2020-03-11 19:00] VITALS: BP 95/45
[2020-03-11] MEDS: LATANOPROST OS SCH (22:39)
[2020-03-11 23:00] VITALS: BP 109/42
[2020-03-12 03:00] VITALS: BP 122/44
[2020-03-12 05:34] LABS: PROTHROMBIN TIME PATIENT 26.4 SEC (11.7-14.0)
[2020-03-12 06:10] LABS: HEMATOCRIT 23.4 % (36.0-47.0); HEMOGLOBIN 8.1 g/dL (12.0-15.5)
[2020-03-12 07:00] VITALS: BP 117/42
[2020-03-12] MEDS: FERROUS SULFATE 325 MG TABLET. PO SCH ×2 (07:48→10:59)
[2020-03-12] MEDS: DULERA INHALER INH SCH ×2 (07:49→22:44)
[2020-03-12] MEDS: BRIMONIDINE 0.2% OPHTH SOLUTION 5ML BOTTLE. OS SCH ×2 (07:49→22:43)
[2020-03-12] MEDS: CELECOXIB 100 MG CAPSULE. PO SCH (07:51)
[2020-03-12] MEDS: LISINOPRIL 20 MG TABLET PO SCH (07:51)
[2020-03-12] MEDS: BRINZOLAMIDE 1% OS SCH ×2 (07:56→22:44)
[2020-03-12] MEDS: CALCIUM CARB/VIT D3 500/200 TABLET. PO SCH (07:56)
[2020-03-12] MEDS: SENNOSIDES/DOCUSATE 8.6/50MG TABLET. PO SCH (07:56)
[2020-03-12] MEDS: DICLOFENAC SODIUM 1% TOPICAL GEL 100GM TUBE. TP SCH ×3 (07:57→21:00)
[2020-03-12] MEDS: MULTIVITAMIN with MINERAL TABLET. PO SCH (07:57)
[2020-03-12] MEDS: oxyCODONE IR 5 MG TABLET PO PRN ×2 (08:00→18:02)
--- NOTE | 2020-03-12 08:39 | PDOC ---
PULMONARY PROGRESS NOTES Subjective No new symptoms no increasing shortness of breath no chest pain pressure pain is adequately controlled Vitals Vital Signs Date Time Temp Pulse Resp B/P (MAP) Pulse Ox O2 Delivery O2 Flow Rate FiO2 03/12/20 08:00 16 Room Air 03/12/20 07:00 100.3 96 117/42 (67) 97 100.3 03/11/20 23:51 2.0 ROS: No Nausea, No Chest Pain, No Abdominal Pain, No Increase Cough General: Alert Lungs: Clear Cardiovascular: S1, S2 Abdomen: Soft Neuro Exam: Alert Extremities: No Edema Skin: Warm Labs Laboratory Tests Test 03/11/20 04:50 03/12/20 04:45 Prothrombin Time 14.7 SEC (11.7-14.0) 26.4 SEC (11.7-14.0) Prothromb Time International Ratio 1.2 (0.8-1.1) 2.4 (0.8-1.1) Hemoglobin 8.1 g/dL (12.0-15.5) Hematocrit 23.4 % (36.0-47.0) Mean Corpuscular Hemoglobin Concent 35 g/dL (31-37) Laboratory Tests Test 03/12/20 04:45 Hemoglobin 8.1 g/dL (12.0-15.5) Hematocrit 23.4 % (36.0-47.0) Mean Corpuscular Hemoglobin Concent 35 g/dL (31-37) Prothrombin Time 26.4 SEC (11.7-14.0) Prothromb Time International Ratio 2.4 (0.8-1.1) Medications Active Scripts Medications Dose Route/Sig Max Daily Dose Days Date Category Dose Instructions Azopt (Brinzolamide) 10 Ml Drops.susp 1 Drop OS BID 03/09/20 Reported Artificial Tears (Polyvinyl Alcohol) 15 Ml Drops 1 Drop EACHEYE QID PRN 20 03/09/20 Reported Tylenol (Acetaminophen) 325 Mg Tablet 1-2 Tab PO QID 03/09/20 Reported Multiple Vitamin (Multivitamin With Minerals) 1 Each Tablet 1 Each PO DAILY 03/09/20 Reported Aspirin Ec (Aspirin) 81 Mg Tablet.dr 1 Tab PO DAILY 03/09/20 Reported Calcium 500 + D Tablet (Calcium Carbonate/Vitamin D3) 1 Each Tablet 1 Tab PO DAILY 30 03/09/20 Reported Voltaren (Diclofenac Sodium) 100 Gm Gel..gram. 1 Gm TP TID 30 03/09/20 Reported apply to affected area(s) Dulera 200 Mcg/5 Mcg Inhaler (Mometasone/Formoterol) 13 Gm Hfa.aer.ad 2 Puff IH BID 03/09/20 Reported Latanoprost 2.5 Ml Drops 1 Drop OS QHS 03/09/20 Reported Celebrex (Celecoxib) 100 Mg Capsule 100 Mg PO DAILY 30 03/09/20 Reported Lisinopril 20 Mg Tablet 1 Tab PO DAILY 03/09/20 Reported Impression . IMPRESSION: 1. Chronic obstructive pulmonary disease. 2. Fall resulting in right hip fracture. Status post repair 3. History of tobacco dependence, in admission. 4. Hypertension. 5. Seizure. Plan . Incentive spirometry up to chair PT Postop care Oxygen PRN DVT GI prophylax YOLANDA HANSEN MD Mar 12, 2020 08:39
--- NOTE | 2020-03-12 10:56 | PN ---
DATE: 03/12/2020 SUBJECTIVE: The patient is resting slightly propped up in bed, in no apparent distress. She is only able to walk a short distance from her bed to the recliner. Denied any other complaint. PHYSICAL EXAMINATION: GENERAL: When I examined her, she looked well and was clearly in no apparent respiratory distress. No pallor, jaundice, cyanosis or thyromegaly. No jugular venous distention. No limb edema. VITAL SIGNS: Her heart rate was 96, blood pressure is 117/42, temperature was slightly high at 100.3, respiratory rate was 18 and oxygen saturation was 97% on room air. HEAD, EYES, EARS, NOSE AND THROAT: Showed normocephalic, atraumatic. NECK: Supple. HEART: Showed normal first and second heart sounds. No gallop or murmur. CHEST: Clear to auscultation. No crepitation or rhonchi. ABDOMEN: Distended, soft, nontender. NEUROLOGIC: She is awake, alert, responding appropriately. All her cranial nerves intact. She moves upper extremities without difficulty. She continued to require assistance and apparently the physical therapist recommended a rehab center. The patient was reluctant to go to a [facility] facility where her cannot come and visit her. However, I recommended that she can go to swing bed at [facility], where her can come and visit her and have both her rehab and her visitation at the same time. The patient seemed to be agreeable. LABORATORY DATA: Her lab work this morning showed that her hemoglobin was 8.1, hematocrit 23.4. PLAN: To continue with pain management. Continue with physical and occupational therapy. I will repeat her lab work tomorrow and if she is ready, we can discharge her tomorrow to swing bed. ROSENDO HALL MD DR: MAY/koffi JOB#: [id number] / [id number]
[2020-03-12 11:00] VITALS: BP 87/38
--- NOTE | 2020-03-12 11:16 | NUR ---
VIJAY following. Discussed with RN. VIJAY saw pt working with therapy, pt would now like referral to [facility]. VIJAY left voicemail for [facility]kowitz, and faxed referral - awaiting acceptance decision. VIJAY will continue to follow. Addendum: 03/12/20 at 1334 by KELLIE LINARES Pt accepted at [facility]. Plan for discharge tomorrow morning. RN notified.
[2020-03-12 14:52] VITALS: BP 108/43
--- NOTE | 2020-03-12 15:10 | NUR ---
Pharmacy Warfarin Dosing Note S:Pharmacy consulted to assist with anticoagulation therapy started 03/10/20 with target INR: 1.6 - 2.5 O:DANIEL GARCIA is a 74 year old F with Hip Fracture LABS: Last INR: 2.4 Last HGB: 8.1 Last HCT: Last PLT: Last dose of 5 mg given on 03/11/20 at 1700 Previous Regimen: Vitamin K given: N Drug Interaction Changes: Ongoing Drug Interactions: A:INR of 2.4 is within desired range. Target range for this patient is: 1.6 - 2.5 P: Warfarin dose: Hold Today at 1600 Bridge Therapy: None Next INR due IN AM Pharmacy anticoagulation service will continue to follow. CECI BURDICK RPH, 03/12/20 [id number]
--- NOTE | 2020-03-12 17:07 | PATHOLOGY ---
[facility] Accession Number: [id number] . 01 Material submitted: . femur - RIGHT HIP BONE AND TISSUE. Modifiers: right, head . 01 Clinical history: . Right hip fx . 02 Diagnosis: Femoral head and neck, right total hip arthroplasty: - Focal fragmentation of bony trabeculae and recent intertrabecular hemorrhage consistent with fracture. - Degenerative arthritis. (JPM:kong; 03/12/2020) QMS 03/12/2020 1616 Local . 02 Comment: There is no evidence of malignancy. (JPM:kong; 03/12/2020) . 02 Electronically signed: . Jamal Preston MD, Pathologist NPI- [id number] . 01 Gross description: . The specimen is received in formalin, labeled "Apple Bower, right hip bone and tissue" and consists of a femoral head with attached fragmented neck measuring 6.0 x 5.0 x 4.8 cm. The articular surface displays extensive eburnation covering approximately 50% of the surface. The non-eburnated surface is roughened smith valencia with osteophytes. The femoral neck is hemorrhagic and partially fragmented consistent with a fracture. Sectioning reveals yellow-valencia to soft red and hemorrhagic cut surfaces. Bean Picker sections are submitted as follows: . A1: Section to include eburnation and fracture hemorrhage A2-A3: Sections to include soft red cut surface All blocks will be submitted following decalcification. (SDY; 03/11/2020) SYU/SYU 03/11/2020 1025 Local . 02 Pathologist provided ICD-10: S72.091A . 02 CPT . 781529, [id number] Specimen Comment: A courtesy copy of this report has been sent to [phone] Specimen Comment: [phone], Specimen Comment: Report sent to ,DR HALL / DR DIEHL Performed at: [address] [facility] [id number] MD Reji Jones MD Phone: [phone] Performed at: 02 [facility] [address] [place], [place] [id number] MD Jamal Preston MD Phone: [phone]
[2020-03-12 19:00] VITALS: BP 123/53
[2020-03-12] MEDS: LATANOPROST OS SCH (22:43)
[2020-03-12 23:00] VITALS: BP 138/60
[2020-03-13 03:00] VITALS: BP 157/67
[2020-03-13 04:28] LABS: HEMATOCRIT 21.3 % (36.0-47.0); HEMOGLOBIN 7.6 g/dL (12.0-15.5); RED BLOOD COUNT 2.29 x10^6/uL (3.50-5.40); RED CELL DISTRIBUTION WIDTH 12.5 % (11.5-14.5); WHITE BLOOD COUNT 9.2 x10^3/uL (4.0-11.0)
[2020-03-13 04:45] LABS: PROTHROMBIN TIME PATIENT 23.2 SEC (11.7-14.0)
[2020-03-13 05:21] LABS: ALBUMIN 2.2 g/dL (3.4-5.0); ALBUMIN/GLOBULIN RATIO 0.7 (1.0-1.7); CALCIUM 7.6 mg/dL (8.5-10.1); CREATININE 0.7 mg/dL (0.6-1.0); TOTAL BILIRUBIN 0.4 mg/dL (0.2-1.0); TOTAL PROTEIN 5.2 g/dL (6.4-8.2)
[2020-03-13 07:00] VITALS: BP 144/61
[2020-03-13] MEDS: CALCIUM CARB/VIT D3 500/200 TABLET. PO SCH (07:04)
[2020-03-13] MEDS: SENNOSIDES/DOCUSATE 8.6/50MG TABLET. PO SCH (07:04)
[2020-03-13] MEDS: FERROUS SULFATE 325 MG TABLET. PO SCH ×2 (07:04→07:05)
[2020-03-13] MEDS: MULTIVITAMIN with MINERAL TABLET. PO SCH (07:04)
[2020-03-13] MEDS: DICLOFENAC SODIUM 1% TOPICAL GEL 100GM TUBE. TP SCH (07:04)
[2020-03-13] MEDS: BRIMONIDINE 0.2% OPHTH SOLUTION 5ML BOTTLE. OS SCH (08:21)
[2020-03-13] MEDS: DULERA INHALER INH SCH (08:21)
[2020-03-13] MEDS: BRINZOLAMIDE 1% OS SCH (08:21)
[2020-03-13] MEDS: CELECOXIB 100 MG CAPSULE. PO SCH (08:22)
[2020-03-13] MEDS: LISINOPRIL 20 MG TABLET PO SCH (08:22)
--- NOTE | 2020-03-13 08:42 | PDOC ---
PULMONARY PROGRESS NOTES Subjective No new symptoms no increasing shortness of breath no chest pain pressure pain is adequately controlled Vitals Vital Signs Date Time Temp Pulse Resp B/P (MAP) Pulse Ox O2 Delivery O2 Flow Rate FiO2 03/13/20 08:00 Room Air 03/13/20 07:00 99.5 97 18 144/61 (88) 95 99.5 03/12/20 19:02 2.0 ROS: No Nausea, No Chest Pain, No Abdominal Pain, No Increase Cough General: Alert Lungs: Clear Cardiovascular: S1, S2 Abdomen: Soft Neuro Exam: Alert Extremities: No Edema Skin: Warm Labs Laboratory Tests Test 03/12/20 04:45 03/13/20 03:45 Hemoglobin 8.1 g/dL (12.0-15.5) 7.6 g/dL (12.0-15.5) Hematocrit 23.4 % (36.0-47.0) 21.3 % (36.0-47.0) Mean Corpuscular Hemoglobin Concent 35 g/dL (31-37) 36 g/dL (31-37) Prothrombin Time 26.4 SEC (11.7-14.0) 23.2 SEC (11.7-14.0) Prothromb Time International Ratio 2.4 (0.8-1.1) 2.1 (0.8-1.1) White Blood Count 9.2 x10^3/uL (4.0-11.0) Red Blood Count 2.29 x10^6/uL (3.50-5.40) Mean Corpuscular Volume 93 fL (79-100) Mean Corpuscular Hemoglobin 33 pg (25-35) Red Cell Distribution Width 12.5 % (11.5-14.5) Platelet Count 195 x10^3/uL (140-400) Sodium Level 127 mmol/L (136-145) Potassium Level 4.0 mmol/L (3.5-5.1) Chloride Level 95 mmol/L (98-107) Carbon Dioxide Level 24 mmol/L (21-32) Anion Gap 8 (6-14) Blood Urea Nitrogen 14 mg/dL (7-20) Creatinine 0.7 mg/dL (0.6-1.0) Estimated GFR (Cockcroft-Gault) 82.0 BUN/Creatinine Ratio 20 (6-20) Glucose Level 113 mg/dL (70-99) Calcium Level 7.6 mg/dL (8.5-10.1) Total Bilirubin 0.4 mg/dL (0.2-1.0) Aspartate Amino Transf (AST/SGOT) 35 U/L (15-37) Alanine Aminotransferase (ALT/SGPT) 28 U/L (14-59) Alkaline Phosphatase 54 U/L (46-116) Total Protein 5.2 g/dL (6.4-8.2) Albumin 2.2 g/dL (3.4-5.0) Albumin/Globulin Ratio 0.7 (1.0-1.7) Laboratory Tests Test 03/13/20 03:45 White Blood Count 9.2 x10^3/uL (4.0-11.0) Red Blood Count 2.29 x10^6/uL (3.50-5.40) Hemoglobin 7.6 g/dL (12.0-15.5) Hematocrit 21.3 % (36.0-47.0) Mean Corpuscular Volume 93 fL (79-100) Mean Corpuscular Hemoglobin 33 pg (25-35) Mean Corpuscular Hemoglobin Concent 36 g/dL (31-37) Red Cell Distribution Width 12.5 % (11.5-14.5) Platelet Count 195 x10^3/uL (140-400) Prothrombin Time 23.2 SEC (11.7-14.0) Prothromb Time International Ratio 2.1 (0.8-1.1) Sodium Level 127 mmol/L (136-145) Potassium Level 4.0 mmol/L (3.5-5.1) Chloride Level 95 mmol/L (98-107) Carbon Dioxide Level 24 mmol/L (21-32) Anion Gap 8 (6-14) Blood Urea Nitrogen 14 mg/dL (7-20) Creatinine 0.7 mg/dL (0.6-1.0) Estimated GFR (Cockcroft-Gault) 82.0 BUN/Creatinine Ratio 20 (6-20) Glucose Level 113 mg/dL (70-99) Calcium Level 7.6 mg/dL (8.5-10.1) Total Bilirubin 0.4 mg/dL (0.2-1.0) Aspartate Amino Transf (AST/SGOT) 35 U/L (15-37) Alanine Aminotransferase (ALT/SGPT) 28 U/L (14-59) Alkaline Phosphatase 54 U/L (46-116) Total Protein 5.2 g/dL (6.4-8.2) Albumin 2.2 g/dL (3.4-5.0) Albumin/Globulin Ratio 0.7 (1.0-1.7) Medications Active Scripts Medications Dose Route/Sig Max Daily Dose Days Date Category Dose Instructions Azopt (Brinzolamide) 10 Ml Drops.susp 1 Drop OS BID 03/09/20 Reported Artificial Tears (Polyvinyl Alcohol) 15 Ml Drops 1 Drop EACHEYE QID PRN 20 03/09/20 Reported Tylenol (Acetaminophen) 325 Mg Tablet 1-2 Tab PO QID 03/09/20 Reported Multiple Vitamin (Multivitamin With Minerals) 1 Each Tablet 1 Each PO DAILY 03/09/20 Reported Aspirin Ec (Aspirin) 81 Mg Tablet.dr 1 Tab PO DAILY 03/09/20 Reported Calcium 500 + D Tablet (Calcium Carbonate/Vitamin D3) 1 Each Tablet 1 Tab PO DAILY 30 03/09/20 Reported Voltaren (Diclofenac Sodium) 100 Gm Gel..gram. 1 Gm TP TID 30 03/09/20 Reported apply to affected area(s) Dulera 200 Mcg/5 Mcg Inhaler (Mometasone/Formoterol) 13 Gm Hfa.aer.ad 2 Puff IH BID 03/09/20 Reported Latanoprost 2.5 Ml Drops 1 Drop OS QHS 03/09/20 Reported Celebrex (Celecoxib) 100 Mg Capsule 100 Mg PO DAILY 30 03/09/20 Reported Lisinopril 20 Mg Tablet 1 Tab PO DAILY 03/09/20 Reported Impression . IMPRESSION: 1. Chronic obstructive pulmonary disease. 2. Fall resulting in right hip fracture. Status post repair 3. History of tobacco dependence, in admission. 4. Hypertension. 5. Seizure. Plan . Incentive spirometry up to chair PT Postop care Oxygen PRN DVT GI prophylax YOLANDA HANSEN MD Mar 13, 2020 08:42
[2020-03-13] MEDS: oxyCODONE IR 5 MG TABLET PO PRN (09:09)
[2020-03-13] MEDS ORDERED: OXYC5CAP PO (10:31)
[2020-03-13] MEDS ORDERED: WARF5TAB2 PO (10:32)
--- NOTE | 2020-03-13 10:34 | SNU/HH DC ---
DISCHARGE ORDERS DISCHARGE INFORMATION: DISCHARGE DATE: Mar 13, 2020 FINAL DIAGNOSIS RIGHT HIP FRACTURES/P orif COPD CONDITION ON DISCHARGE: Stable CODE STATUS: Code Status: Full PENITENTIARY: SNF STAY <30 DAYS: Yes POST DISCHARGE ORDERS: ACTIVITY ORDERS: Activity as tolerated WEIGHT BEARING STATUS: As tolerated DIET AFTER DISCHARGE: Regular TREATMENT/EQUIPMENT ORDERS: Physical Therapy For: Evalulation/Treatment Occupational Therapy For: Evaluation/Treatment DISCHARGE MEDICATIONS: Home Meds Active Scripts Warfarin Sodium (COUMADIN) 5 Mg Tablet, 4 MG PO DAILY for DVT for 30 Days, #24 TAB Prov:ROSENDO HALL MD 03/13/20 Oxycodone Hcl (OXYCODONE HCL) 5 Mg Capsule, 5 MG PO Q4H PRN for PAIN for 30 Days, #180 TAB 0 Refills Prov:ROSENDO HALL MD 03/13/20 Reported Medications Brinzolamide (AZOPT) 10 Ml Drops.susp, 1 DROP OS BID, #15 ML 3 Refills 20 Polyvinyl Alcohol (ARTIFICIAL TEARS) 15 Ml Drops, 1 DROP EACHEYE QID PRN for DRY EYE for 20 Days, #15 ML 0 Refills 20 Acetaminophen (TYLENOL) 325 Mg Tablet, 1-2 TAB PO QID for pain, #60 TAB 2 Refills 20 Multivitamin With Minerals (MULTIPLE VITAMIN) 1 Each Tablet, 1 EACH PO DAILY for supplement, TAB 20 Aspirin (ASPIRIN EC) 81 Mg Tablet.dr, 1 TAB PO DAILY for blood thinner, #30 TAB 3 Refills 20 Calcium Carbonate/Vitamin D3 (CALCIUM 500 + D TABLET) 1 Each Tablet, 1 TAB PO DAILY for supplement for 30 Days, #30 TAB 0 Refills 20 Diclofenac Sodium (VOLTAREN) 100 Gm Gel..gram., 1 GM TP TID for pain for 30 Days, #1 EACH 0 Refills apply to affected area(s) 03/09/20 Mometasone/Formoterol (DULERA 200 MCG/5 MCG INHALER) 13 Gm Hfa.aer.ad, 2 PUFF IH BID for "spot on lung", #13 GM 5 Refills 20 Latanoprost (LATANOPROST) 2.5 Ml Drops, 1 DROP OS QHS for eye implants, #2.5 ML 3 Refills 7/5/20 Celecoxib (CELEBREX) 100 Mg Capsule, 100 MG PO DAILY for pain for 30 Days, #30 CAP 0 Refills 03/09/20 Lisinopril (LISINOPRIL) 20 Mg Tablet, 1 TAB PO DAILY for HTN, #30 TAB 5 Refills 03/09/20 Discontinued Reported Medications [adopt] No Conflict Check, 1 DROP OS BID for eye implants 03/09/20 ROSENDO HALL MD Mar 13, 2020 10:34
--- NOTE | 2020-03-13 10:56 | DS ---
DATE OF DISCHARGE: 03/13/2020 HOSPITAL COURSE: The patient is a 74-year-old female patient who fell at home, sustaining right intertrochanteric fracture. She was seen in consultation by Dr. Grant and Dr. Cook. She has had chronic obstructive pulmonary disease. She was stable from that point of view. She underwent operative reduction and internal fixation of right intertrochanteric hip fracture and total hip arthroplasty successfully and she was started on Coumadin for DVT prophylaxis and she was started on physical and occupational therapy and she continued to obviously require rehabilitation. A decision was made to admit her to swing bed at [facility]. PHYSICAL EXAMINATION: GENERAL: When I saw her this morning, she looked well and was clearly in no apparent respiratory distress. No pallor, jaundice, cyanosis or thyromegaly. No jugular venous distention. No limb edema. VITAL SIGNS: Her heart rate was 97, blood pressure was 144/61, temperature 99.5, respiratory rate was 18 and oxygen saturation was 95%. HEAD, EYES, EARS, NOSE AND THROAT: Showed normocephalic, atraumatic. NECK: Supple. HEART: Showed normal first and second heart sounds. No gallop or murmur. CHEST: Clear to auscultation. No crepitation or rhonchi. ABDOMEN: Distended, soft, nontender. NEUROLOGIC: She was awake, alert, responding appropriately. EXTREMITIES: She moves extremities without difficulty. She obviously ambulates with a walker. Her intake was 600, output was 300. LABORATORY WORK: Showed a white cell count 9200, hemoglobin 7.6, hematocrit 21, MCV 93, and platelet count of 195,000. Her sodium was 127, potassium 4, chloride 95, bicarbonate 24, anion gap of 8, BUN 14, creatinine 0.7, estimated GFR was 83 mL per minute. Her glucose was 113, calcium was 7.6. Total bilirubin, AST, ALT, alkaline phosphatase were normal. Total protein was 5.2, albumin was 2.2. Her prothrombin time today this morning was 23.2, INR of 2.1. DISCHARGE MEDICATIONS: She was discharged to swing bed to continue on oxycodone 5 mg every 4 hours as needed, Coumadin 4 mg daily to adjust the Coumadin dose and maintain INR between 2-2.5. She is on acetaminophen 1-2 tablets every 6 hours, aspirin 81 mg once a day, Azopt 1 drop to both eyes twice a day, calcium carbonate with vitamin D3 one tablet once a day, Celebrex 100 mg daily, diclofenac sodium, Voltaren gel 3 times a day, latanoprost 1 drop to both eyes at bedtime, lisinopril 20 mg daily, mometasone-formoterol for Dulera 2 puffs twice a day, multivitamin 1 tablet once a day, polyvinyl alcohol, artificial tears 1 drop to both eyes 4 times a day. FINAL DISCHARGE DIAGNOSES: 1. Right intertrochanteric hip fracture and severe degenerative joint disease of the right hip joint, for which she underwent operative reduction and internal fixation of right intertrochanteric fracture with total hip arthroplasty. 2. Blood loss anemia. 3. Hyponatremia. 4. The patient has multiple other medical problems including: A. Hypertension. B. Chronic obstructive pulmonary disease. C. Glaucoma. D. Pulmonary nodules, followed by Dr. Cook. 5. History of seizures. ROSENDO HALL MD DR: MAY/koffi JOB#: [id number] / [id number]
--- NOTE | 2020-03-13 11:28 | NUR ---
Discharge instructions and belongings reviewed with patient, verbalized understanding. Patient escorted out of hospital by Transport and taken to Swing @[facility]. Report called to [phone]
== END 2020-03-13 12:40 | disposition swing bed (61) | DRG 470 ==
LOC: 4 NORTH 13:42
PROVIDERS: ADMIT Internal Medicine; ATTEND Internal Medicine
PROC: 0QS604Z Reposition Right Upper Femur with Internal Fixation Device, Open Approach (ICD-10-PCS; 2020-03-10)
PROC: 0SR902Z Replacement of Right Hip Joint with Metal on Polyethylene Synthetic Substitute, Open Approach (ICD-10-PCS; principal; 2020-03-10 11:30)
DX: S72.141A Displaced intertrochanteric fracture of right femur, initial encounter for closed fracture (principal); E87.1 Hypo-osmolality and hyponatremia; D50.0 Iron deficiency anemia secondary to blood loss (chronic); H40.9 Unspecified glaucoma; I10 Essential (primary) hypertension; J43.9 Emphysema, unspecified; J84.10 Pulmonary fibrosis, unspecified; M16.11 Unilateral primary osteoarthritis, right hip; Z82.0 Family history of epilepsy and other diseases of the nervous system; Z82.49 Family history of ischemic heart disease and other diseases of the circulatory system; Z87.891 Personal history of nicotine dependence; Z96.649 Presence of unspecified artificial hip joint; Z88.5 Allergy status to narcotic agent; Z88.8 Allergy status to other drugs, medicaments and biological substances; R56.9 Unspecified convulsions; W18.39XA Other fall on same level, initial encounter; Y93.89 Activity, other specified; Y92.89 Other specified places as the place of occurrence of the external cause; Y99.8 Other external cause status
CPT/HCPCS: 36415; 73502; 80053; 85014; 85018; 85025; 85027; 85610; 88305; 88311; J0690; J1100; J2270; J2370; J2405; J2704; J2710; J3010; J3490; J7030; J7120; 97110-GP; 97116-GP; 97530-GO; 97535-GO; G0378